=== PATIENT | male | born 1980 | race Caucasian/White ===

== ENCOUNTER 2021-05-11 10:05 | Emergency (ER) | payer OTHER ==
[~2021-05-11] VITALS: Ht 185.4 cm; Wt 114.3 kg
[~2021-05-11 10:05] MED LIST: ALTACE5 M1 PO; DIPHENHIST50 MG PO; PREDNISONE50 MG PO; RA NIACIN 500500 MG PO; ZOLOFT100 MG PO
[2021-05-11] MEDS ORDERED: RAMIPRIL10 MG PO (10:15)
[2021-05-11] MEDS ORDERED: LIPITOR40 MG PO (10:16)
[2021-05-11] MEDS ORDERED: NORVASC5 MG PO (10:16)
[2021-05-11] MEDS ORDERED: CHILDREN'S ASPI81 MG PO (10:16)
[2021-05-11] MEDS ORDERED: LAMICTAL100 MG PO (10:16)
[2021-05-11] MEDS ORDERED: ALPRAZOLAM 0.50.5 M1 PO (10:17)
[2021-05-11 10:44] LABS: ABSOLUTE EOSINOPHILS 0.1 thou/uL (0.0-0.7); ABSOLUTE LYMPHOCYTES 1.1 thou/uL (0.8-5.3); ABSOLUTE MONOCYTES 0.5 thou/uL (0.0-1.2); ABSOLUTE NEUTROPHILS 3.6 thou/uL (1.6-8.1); BASOPHILS 0.6 %; EOSINOPHILS 1.7 %; HEMATOCRIT 46.1 % (42.0-52.0); HEMOGLOBIN 15.8 gm/dL (14.0-18.0); MCH 30.2 pg (26.0-34.0); MCHC 34.3 g/dL (28.0-37.0); MPV 7.8 fl. (7.2-11.1); NUCLEATED RBCS 0 /100WBC; PLATELET COUNT* 206 thou/uL (150-400); POLYS 67.7 %; RBC 5.24 mil/uL (4.50-6.00); RDW-CV 13.7 % (10.5-14.5); WBC 5.3 thou/uL (4.0-11.0)
[2021-05-11 10:51] LABS: CALCIUM 9.1 mg/dL (8.5-10.1); CREATININE 1.1 mg/dL (0.6-1.3)
[2021-05-11 10:59] LABS: ALBUMIN 4.1 g/dL (3.4-5.0); MAGNESIUM 1.9 mg/dL (1.8-2.4); TOTAL BILIRUBIN 0.5 mg/dL (<0.1-1.0); TOTAL PROTEIN 7.5 g/dL (6.4-8.2)
[2021-05-11 13:01] VITALS: BP 115/62
--- NOTE | 2021-05-12 15:22 | EKG ---
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 : 1980 Requested By: Anuj Garcia Order Number: [id number] MD: Pepe Saul Measurements Intervals [place] Rate: 99 P: 40 OR: 140 QRS: 102 QRSD: 100 T: 47 QT: 345 QTc: 443 Interpretive Statements Sinus rhythm Right axis deviation Baseline wander in lead(s) V3 No previous ECG available for comparison Electronically Signed On 05-12-2021 15:22:21 CDT by Pepe Saul [email or web address] <ELECTRONICALLY SIGNED> By: Pepe Saul MD, [facility] 05/12/21 1522 1008 1008 Pepe Saul MD, [facility] /EPI
== END 2021-05-11 13:01 | disposition home or self-care (01) ==
LOC: M.ERS 10:05
PROVIDERS: Emergency Medicine Emergency Medical Services
DX: R07.89 Other chest pain (principal); R42 Dizziness and giddiness; I10 Essential (primary) hypertension